=== PATIENT | male | born 1960 | race Caucasian/White ===

== ENCOUNTER 2025-01-07 08:13 | Inpatient (IN) | payer OTHER, SELFPAY ==
[2025-01-04 18:07] VITALS: BP 147/92
[2025-01-04 18:40] LABS: Hematocrit 47.9 % (39.0-52.0); Hemoglobin 15.1 g/dL (13.0-18.0); Mean Corp Hgb Conc. 31.5 g/dL (33.0-37.0); Mean Corpuscular Volume 90.4 fL (80.0-94.0); Nucleated Red Blood Cells % 0 % (-); Platelet Count 239 10^3/uL (130-400); Red Cell Dist. Width 13.3 % (11.5-14.5)
[2025-01-04 19:01] LABS: ALT (SGPT) 43 U/L (0-50); AST (SGOT) 24 U/L (17-59); Albumin 4.0 g/dl (3.5-5.0); Alkaline Phosphatase 61 U/L (38-126); Blood Urea Nitrogen 32 mg/dl (9-20); Calcium 8.9 mg/dl (8.4-10.2); Carbon Dioxide 22 mmol/L (22-30); Chloride 109 mmol/L (98-107); Glucose 106 mg/dl (70-99); Lipase 217 U/L (23-300); Potassium 4.6 mmol/L (3.5-5.1); Sodium 139 mmol/L (135-145); Total Protein 7.2 g/dl (6.3-8.2); eGFR 27.99
[2025-01-04 19:15] LABS: Urine Character Clear (Clear)
[2025-01-04 20:30] LABS: Urine Red Blood Cell 0-2 /HPF (0-2); Urine Squamous Cell >30 /LPF (Few)
--- NOTE | 2025-01-04 20:33 | ED.GENMED ---
History of Present Illness
General
Chief Complaint: Flank Pain
Source: patient
Exam Limitations: none
Time Seen by Provider: 01/04/25 20:00
Nursing documentation reviewed up to this point in time: agreed with
History of Present Illness
History of Present Illness:
64-year-old male with a past medical history of hypertension, hyperlipidemia, 'heart attack' who presents to the emergency department with his daughter for evaluation of multiple complaints. Patient is from [facility] and recently arrived here to
stay with his family. His daughter is at bedside and helps with collateral history. His primary reason it sounds like for presented to the ER tonight is that he is having chest pain which he describes as a vague heaviness in the left side of his
chest that has been off and on for the past few days. This is associated with a persistent cough and intermittent chills. Cough has been ongoing for about a month. Patient says that he was apparently hospitalized for 10 days in [facility] and was
released last week before coming [place] the [place]. He says he was hospitalized for 'heart attack' but says that he did not have any stents or procedures done in his heart and was treated only with medications. He feels symptoms the past few days similar.
In addition to his chest pains patient also has been having left-sided flank pain and this has been ongoing for a few weeks waxing and waning intensity and he describes it as 'a kidney pain.' Radiates towards the left lower abdomen. No clear
triggering or relieving factors. He has had some increased urinary frequency. No dysuria or hematuria noted. He does have a history of kidney stones apparently. He has not had any nausea, vomiting or change in stools.
Review of Systems
Review of Systems
All Other Systems: ROS reviewed and negative except as documented in HPI and ROS
Constitutional: Reports fever, fatigue and chills
EENT: Reports runny nose; Denies sore throat
Respiratory: Reports cough and trouble breathing
Cardiac: Reports chest pain
ABD/GI: Denies abdominal pain, nausea, vomiting or diarrhea
: Reports frequency and flank pain; Denies dysuria or bleeding
Musculoskeletal: Reports back pain
Neurological: Denies dizzy or headache
Phy Exam
Physical Exam
Physical Exam:
General: Awake, alert, oriented x3; no acute distress
Head: Normocephalic, atraumatic
Eyes: Conjunctiva normal, sclera anicteric
Throat: Airway intact, handling secretions
Neck: Trachea midline, supple without meningismus
Lungs: Clear to auscultation bilaterally, no wheezing, rales, rhonchi
Heart: Regular rate and rhythm, no murmurs, gallops, or rubs
Abd: Soft, non distended, nontender
Back: No CVA tenderness
Neuro: Grossly intact
Skin: No rash noted
Extremities: Trace edema around the ankles, no calf tenderness, equal pulses in all extremities
Scores
Heart Failure Risk
Heart Failure Risk Score: Not Applicable
Heart Score for Chest Pain Patients
STEMI patient?: No
History: Slightly or Non-Suspicious
ECG: Normal
Age: >45 - <65 years
Risk Factors: >/= 3 Risk Factors or History of CAD
Troponin: </= Normal Limit
Heart Score for Chest Pain Patients: 3
Heart Score Risk: 2.5% MACE over next 6 weeks
Withdrawal Assessment of Alcohol
Withdrawal Assessment Completed?: Not applicable
Course
Orders/Labs/Results
Orders:
Orders
01/04/25 18:16
Urinalysis Reflex To Culture Urgent
Date Specimen was Collected: 01/04/25
Time Specimen was Collected: 18:12
Urine Microscopic Reflex Cult Urgent
01/04/25 18:20
Complete Blood Count/With Diff Urgent
Comprehensive Metabolic Panel Urgent
Lipase Urgent
01/04/25 20:03
CT Abd/pel Without Iv Or Oral Urgent
Comment:
Reason For Exam: left flank pain
0.9% Sodium Chloride 1000 ml [Nss] 1,000 ml IV BOLUS
01/04/25 20:32
Electrocardiogram (*1) Urgent
Reason for Study: Chest Pain
EKG- Treatment ONCE
CR Chest - 2 Views Urgent
Comment:
Reason For Exam: chest pain
01/04/25 20:43
Add On- LAB Urgent
Tests Added?: lipase
01/04/25 20:44
COVID-19 Antigen Urgent
Source: Nasal Swab
NT-proBNP Urgent
Troponin I Urgent
Influenza A+B Rapid Molecular Urgent
ALPHONSO Source: Nasal Swab
Specimen Description:
01/04/25 22:15
EKG [Electrocardiogram (*1)] Urgent
Reason for Study: Chest Pain
EKG- Treatment ONCE
01/04/25 22:26
Morphine Sulfate 4 mg IV NOW STA
01/04/25 22:36
D-Dimer Urgent
01/04/25 23:01
CT Chest PE Study Urgent
Comment:
Reason For Exam: sob, CP, +dimer
0.9% Sodium Chloride 500 ml [Nss] 500 ml IV BOLUS
01/04/25 23:51
Troponin I Urgent
Abnormal Lab Results
01/04/25 01/04/25 01/04/25
18:16 18:20 22:36
MCHC 31.5 L g/dL
(33.0-37.0)
Abs Immat Gran (auto) 0.1 H 10^3/uL
(0-0.05)
Absolute Monos (auto) 1.0 H 10^3/uL
(0.1-0.6)
Immature Gran % 1.5 H %
(0-0.5)
Monocytes % 11.0 H %
(1.7-9.3)
D-Dimer 0.79 H ug/mlFEU
(0.00-0.50)
Chloride 109 H mmol/L
(98-107)
BUN 32 H mg/dl
(9-20)
Creatinine 2.5 H mg/dL
(0.7-1.3)
Glucose 106 H mg/dl
(70-99)
Ur Occult Blood Reflex 1+ A
(Negative)
Urine Bacteria (Reflex) Few A
(Negative)
Urine Albumin (Reflex) 3+ A
(Neg - Trace)
01/04/25 18:20
01/04/25 18:20
Vital Signs
Initial and Last Documented VS:
Initial Vital Signs
Temp Pulse Resp BP Pulse Ox
36.8 C 78 16 147/92 98
01/04/25 18:07 01/04/25 18:07 01/04/25 18:07 01/04/25 18:07 01/04/25 18:07
Last Documented Vital Signs
Temp Pulse Resp BP Pulse Ox
36.8 C 71 23 162/96 97
01/04/25 18:07 01/05/25 00:15 01/05/25 00:15 01/04/25 23:00 01/05/25 00:15
MDM/Problems Addressed
Differential Diagnosis Includes:
Chest pain: ACS/angina, pneumonia, pneumothorax, costochondritis, GERD, PE somewhat less likely clinically
Flank pain: Muscle pain, nephrolithiasis, UTI, diverticulitis less likely without abdominal pain or tenderness, PE less likely with normal vital signs and intermittent symptoms
MDM/Problems Addressed:
64-year-old male presents with his daughter for evaluation of multiple complaints�has had some left-sided chest pain associated with persistent cough and chills, rhinorrhea. Also having some left flank pain waxing waning intensity similar to prior
kidney stones. His vitals and exam are as above. He had lab work sent in triage including a CBC which showed no clinically significant abnormalities; CMP showed creatinine of 2.5�no baseline for comparison but patient apparently has a history of
some chronic kidney disease. His urinalysis was positive for blood but no infection. CT abdomen/pelvis for kidney stone is pending. Added chest x-ray. Will check EKG and troponin. At this point clinical suspicion for PE is low although always a
consideration especially in light of recent travel�hold off on further workup at this point.
His initial troponin is undetectable. Chest x-ray shows no acute disease. CT shows no acute abnormality to account for symptoms although multiple incidental findings requiring nonemergent follow-up. Patient remains symptomatic�although clinical
suspicion for PE is lower we will check a D-dimer given his recent travel. Repeat troponin. Treat symptomatically.
D-dimer is positive. Patient remains symptomatic with chest pain and flank pain on reassessment. I think given his recent flight with persistent symptoms of pain and a positive D-dimer he does need a CT angiogram to rule out a pulmonary embolism.
He elevated creatinine noted will plan to hydrate with IV contrast administration. In my judgment the risk of missed diagnosis outweighs risk of contrast nephropathy at this point.
CT chest shows no PE but does show CAD. There is some stenosis of the subclavian artery and likely chronic proximal vertebral artery occlusion. No acute abnormalities noted. Patient is feeling better after some morphine here. Unclear etiology to
his chest pain and he clearly has cardiac risk factors and claims that he had 'heart attack' recently�it sounds like this was likely an NSTEMI. I had a long discussion with the patient and his daughter�clearly he should be seen by cardiology with
his history and now worsening chest pains. Daughter is concerned because he is new to the area and is not well-established with any doctors and currently lives by himself here. He does not speak Qatari well. With these logistical concerns in
mind I do think that the best thing would be to observe him overnight in the hospital and have cardiology see him here. Discussed case with hospitalist for admission.
Chronic conditions affecting care:
Hypertension, hyperlipidemia, reported history of CA
*Radiology
Radiology exam reviewed: preliminary read by ED provider and radiology read reviewed
*Pulse Oximetry
SaO2: 98
Oxygen Mode of Delivery: Room air
Patient hypoxic: no (98%)
*EKG
Interpreted by ED Provider?: Yes
Heart Rate: 74
Rate: normal
Rhythm: sinus
[place]: normal axis
Interval: normal interval
QRS Pattern: normal QRS
Ischemia: other (inferior infarct, age-indeterminate )
*Critical Care Note
Total Time (30-74mins, 75-104mins- exclusive of procedures): Not Applicable
Data Reviewed
Source: patient and family
Patient Management
Social determinants of health affecting care: Living situation (Lives alone, new to the area) and Poor outpatient follow-up
Discussion with other providers: Hospitalist (Discussed with hospitalist)
Escalation/DeEscalation of care consider admission/obs:
Admission indicated
ED Attending Note
-
Portions of this chart may have been created with voice recognition software.� Occasional wrong word or��sound alike� substitutions may have occurred due to the inherent limitations of voice recognition software.
Discharge Plan
Departure
Patient Disposition: Admit
Date of Disposition: 01/05/25
Time of Disposition: 00:25
Admit to doctor: Hans
Presentation/result/management discussed w/ accepting MD/DO: Hospitalist
Discharge Problem:
Chest pain, Flank pain
Referrals:
Misael Geronimo MD [Family Provider, Internal Medicine]
Interventions
Interventions:
*Risk Screen - Suicide Last Done: 01/04/25 21:58
*General Assessment Last Done: 01/04/25 21:58
*Neglect/Abuse Screening Last Done: 01/04/25 21:58
*ED- Fall Risk Assessment Last Done: 01/04/25 22:42
*ED COVID-19 Vaccine History Last Done: 01/04/25 22:42
*ED Influenza Vaccine History Last Done: 01/04/25 22:42
AL-Fgmszh-Yuouddvvms Assessment Last Done: 01/04/25 22:00
ED-Male Genitourinary Assessment Last Done: 01/04/25 22:00
Discharge Date and Time
Print Language: IRISH
[2025-01-04] MEDS: NSS 1000 IV (20:44)
[2025-01-04 21:11] LABS: COVID-19 Antigen Negative (Negative)
[2025-01-04 21:21] LABS: Troponin I < 0.012 ng/ml
[2025-01-04 22:00] VITALS: BP 158/91
[2025-01-04] MEDS: MORPHINE SULFATE 4 MG IV (22:30)
[2025-01-04 22:35] VITALS: BMI 38.4
[2025-01-04 22:56] LABS: D-Dimer 0.79 ug/mlFEU (0.00-0.50)
[2025-01-04 23:00] VITALS: BP 162/96
[2025-01-04] MEDS: NSS 500 IV (23:11)
[2025-01-05] VITALS (9 sets, daily range): BP systolic 143–173; BP diastolic 72–99; BMI 36.1
[2025-01-05 00:31] LABS: Troponin I < 0.012 ng/ml
--- NOTE | 2025-01-05 01:36 | HPS.HSE ---
Family Physician
-
Family Physician: Misael Geronimo
Chief Complaint
-
Chest pain
History of Present Illness
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
Patient reports acute onset of chest pain radiating to his left arm lasting for about 30 minutes and associated with some diaphoresis but no nausea or vomiting. He says there was also some shortness of breath. He feels better after initial
treatment in the emergency department. His pain is now 0. He denies any palpitations lightheadedness or dizziness.
Patient is visiting from his [place] and he has been in [place] since late November. He stated a few months ago while he inspect his stent he had chest pain and was hospitalized with recommendations for stent placement. He refused stent
placement at that time. He said he was started on medications for his heart. I advised that he left his medications and lives with his son and has been off medications except losartan since arrival in [place]. He is a smoker. He denies
significant alcohol use. He denies any past medical history. He is unable to tell me why he has known CKD but creatinine was elevated in the emergency department. He reports that he has had a history of kidney 'sand'.
In the ED he was afebrile, BP of 156/73 with a pulse rate of 75 and was satting 98% on room air. ECG shows normal sinus rhythm at rate of 74 and Q waves in leads III and aVF. COVID test was negative. Troponin was negative x 2. Full lipase LFTs
were all normal. Electrolytes were normal. Creatinine was 2.5. CBC was unremarkable. Chest x-ray shows no acute infiltrate. He had a CT PE study which was negative for PE. He did showed some stenosis of the left subclavian artery.
A CT of the abdomen pelvis was performed showing indeterminate 2.0 cm left renal lesion, probably benign. Recommend follow-up renal ultrasound or MRI in 6 months. Fusiform aneurysmal dilatation of the infrarenal abdominal aorta measuring up to 3.8
cm. Questionable pancreatic cystic lesion. Recommend outpatient workup with dedicated MRI/MRCP abdomen without and with gadolinium contrast.
Medical History
Past Medical History
Past Medical History: Reports CAD and HTN
Past Surgical History: Reports Orthopedic (Back surgery)
Social History
Tobacco: Smoker (1/2 pack/day)
Alcohol: Occasional
Drug: None
Personal:
Family History
Family History: Not pertinent
Allergies / Home Medications
Allergies reflects when Allergies were last updated in [employer].
Home Medications with original date entered in [employer]
Allergy/Medication List:
Allergies
Allergy/AdvReac Type Severity Reaction Status Date / Time
No Known Allergies Allergy Verified 01/04/25 18:11
Home Medications
losartan PO DAILY 01/05/25
Review of Systems
-
Constitutional: Reports No Symptoms
EENT: Reports No Symptoms
Respiratory: Reports No Symptoms
Cardiac: Reports Chest Pain
Abdomen/GI: Reports No Symptoms
: Reports No Symptoms
Musculoskeletal: Reports No Symptoms
Skin: Reports No Symptoms
Neurological: Reports No Symptoms
Endocrine: Reports No Symptoms
Hematologic/Lymphatic: Reports No Symptoms
Psych: Reports No Symptoms
Physical Exam
Vital Signs
Vital Signs
Temp Pulse Resp BP Pulse Ox
98.3 F 72 22 156/73 95
01/04/25 18:07 01/05/25 01:15 01/05/25 01:15 01/05/25 01:00 01/05/25 00:45
Physical Exam
General: Well Developed, Well Nourished and No Apparent Distress
HEENT: NormoCephalic, Moist mucous membranes and Atraumatic
Respiratory: Clear
Cardiac: S1/S2 and Regular Rhythm; No Murmur or Rub
GI: Soft, Non Tender, Non Distended and Normal Bowel Sounds; No Organomegaly
Rectal: Deferred by Provider
Musculoskeletal: No Clubbing, No Cyanosis and No Edema
Skin: No Rash
Neuro: Nonfocal/grossly intact
Laboratory Results
-
01/04/25 18:20
01/04/25 18:20
Laboratory Results
Total Bilirubin 0.4 mg/dl (0.2-1.3) 01/04/25 18:20
AST 24 U/L (17-59) 01/04/25 18:20
ALT 43 U/L (0-50) 01/04/25 18:20
Alkaline Phosphatase 61 U/L (38-126) 01/04/25 18:20
Troponin I < 0.012 ng/ml 01/04/25 23:51
Lipase 217 U/L (23-300) 01/04/25 18:20
Data Reviewed
-
CT Scan: Report Reviewed by me
Medical Tests (Nuc Med, Echo, EKG etc): Image Personally Visualized and interpreted
Lab Data: Labs Reviewed by me
Impression/Plan
-
IMPRESSION:
64-year-old male from his [place], active smoker), hypertension, possible history of CAD on aspirin recommended a stent previously in his biggest and comes in with episode of left-sided chest pain radiating to the left arm, lasted for about 20
minutes and now resolved. ECG, troponin, CT PE negative. Due to his recent evaluation for possible stent and likely NSTEMI while he was in [facility] patient is at high risk for coronary syndrome and will be admitted for monitoring and cardiology
evaluation.
PLAN:
Chest pain -home possible ACS,
-Admit to telemetry observation
-Nitroglycerin as needed chest pain
-Aspirin 81 mg daily for now
-Lipid panel in a.m., if elevated start statin
-Continue losartan
-Echo in a.m.
- Consider stress test but can be done as an outpatient
- Cardiology consulted
- Further GDMT per cardiology
Creatinine elevation to 2.5 -suspect CKD. No prior records with patient on losartan. CT scan shows no acute renal processes. Indeterminate 2.0 cm left renal lesion, probably benign. Recommend follow-up renal ultrasound or MRI in 6 months.
- IV fluid s/p contrast
- avoid nephrotoxins
- continue losartan for now
- repeat creatinine in am
- outpatient u/s
AAA - 3.8 cm infrarenal aaa, asymptomatic
- bp control, consider metoprolol
- aspirin/statin
- smoking cessation
- follow up as outpatient
Questionable pancreatic cystic lesion.
- Recommend outpatient workup with dedicated MRI/MRCP abdomen without and with gadolinium contrast.
DVT PPX - SCD for now
Code status - full code
--- NOTE | 2025-01-05 03:41 | PTCARENOTE ---
Patient received from emergency room as admission to unit. Able to ambulate from transport stretcher to bed under own power without assistance. Pateient is only cymro speaking, daughter at bedside for assistance with Intake assessment, vital signs
documented per protocol. No acute distress is noted Telemetry pack 19 placed on patient as ordered. Hydration provided prior to departing room.
[2025-01-05 07:56] LABS: HDL Cholesterol 23 mg/dl; LDL Cholesterol, Calculated 135 mg/dl; Very Low Density Lipoprotein 36 mg/dl (0-30)
[2025-01-05 08:04] LABS: Troponin I < 0.012 ng/ml
--- NOTE | 2025-01-05 09:24 | W.PN.HOSP.TC ---
Today's Communication/Plan
-
see PN
Assessment / Plan
Assessment / Plan
64yo M with PMHX of HTN, chest pain, current smoker Hx of cardiac cath 2 mo ago in [facility] and declined stent placement at that time, [place] country [place] 19 brought with substernal chest pain similar to prior radiating to L arm, lasted
for 15min
A/P:
#Chest pain, stable angina
HLD
troponin WNL
no signs of ACS on EKG
Telemetry
Echo
Cardio consult
ASA, statin
#AAA 3.8cm
follow up in 12mo with PCP for US
#Elevated d-dimer
CT chest w/o PE
US LE for completeness
#paraseptal emphysema
#nicotine dependency
counselled on smoking cessation
#Fatty liver disease
#2cm L renal lesion
#Questionable pancreatic cyst
recommended MRI/MRCP as outpatient, but patient recently arrived to the country, questionable abilty to follow as outpatient. Contrast administration can be limited by renal function
#Essential HTN
stop losartan with elevated Cr
BB eventually, amlodipine
DVT ppx hep
FUll code
I have spent at least 58min reviewing chart, test results, communication with consultants, discussed in details with daughter over the phone and providing direct patient care
Anticipated Discharge: 24 - 48 hours
Subjective/Interval History
-
Date of Service: January 05, 2025
Objective Data
-
Labs:
Laboratory Results
01/05/25
09:19
Sodium Pending
Potassium Pending
Chloride Pending
Carbon Dioxide Pending
BUN Pending
Creatinine Pending
Glucose Pending
Calcium Pending
Vital Signs:
Vital Signs
Temp Pulse Resp BP Pulse Ox
98.6 F 62 16 167/94 94
01/05/25 07:42 01/05/25 07:42 01/05/25 07:42 01/05/25 07:42 01/05/25 07:42
I&O
01/04/25 01/05/25 01/06/25
06:59 06:59 06:59
Intake Total 960 / 960
Balance 960 / 960
Review of Systems
-
History Source: Patient
All other systems: Reviewed and negative
Physical Exam
-
General: No Apparent Distress
HEENT: Normocephalic
Respiratory: Clear to Auscultation
Cardiac: Regular Rhythm
GI: Soft, Nontender and Nondistended
Genito-urinary: No Costovertebral Tender (L)
Musculoskeletal: No Clubbing, No Cyanosis and No Edema
Neuro: Awake, Alert, Oriented and AO x 3
Psych: Calm
[2025-01-05] MEDS: NORVASC 5 MG PO (09:36)
[2025-01-05] MEDS: LOW STRENGTH ASPIRIN 81 MG PO (09:36)
[2025-01-05 09:42] LABS: Glycohemoglobin (HgbA1c) 6.6 % (4.0-5.6)
--- NOTE | 2025-01-05 09:51 | CON.CAR ---
Addendum entered and electronically signed by Nneka Mcclendon MD 01/05/25 12:17:
I saw and examined the patient.
The Channel Man's note was reviewed and I agree with the note.
Comment: [place] assistant finance director was used via the language line to obtain history and completed physical exam and discussed plan with the patient. Briefly patient is a South Korean speaking 64-year-old gentleman, morbidly obese who is a resident of [place]
who moved to live with his daughter about a month or so ago. I did try to reach the daughter, Iwona but ended up leaving a message on her voicemail since I could not reach her. Patient tells me that he has been having ongoing at times sharp
left-sided chest discomfort with numbness radiating into bilateral arms associated with shortness of breath over the last few months occurring both with exertion and at rest. Recently it has also been waking him up from being asleep. He underwent
a cardiac evaluation in his [place] in October which we unfortunately do not have any records of and was recommended stenting. The patient however patient refused saying he felt like it was 'too early.' They did warn him that his symptoms may
worsen over time. He tells me he was started on medications however the only medication by our records that he has been taking as an outpatient is losartan. He thankfully is not having any chest pain currently. We asked him if he knew if he is a
diabetic given his A1c of 6.6-year and he told us that he did not know this. We also question him in regards to his kidney function however patient tells me that he was not aware of any kidney dysfunction. His daughter relayed to her physician
enrichment assistant that they knew of some kidney dysfunction but was told that it was due to a kidney stone. We do not have a baseline creatinine. Troponins so far have been negative. LDL is 135. He has known history of hypertension, hyperlipidemia and
ongoing tobacco abuse. He has been a smoker for 40 years, smoking 5 to 6 cigarettes daily he tells me. He is now retired and used to work as a director of a factory.
Vital signs and lab work reviewed. On exam patient is morbidly obese, in no acute distress, awake, alert and oriented x 3, regular rate, normal S1 and S2, no murmurs, rubs or gallops, abdomen is obese, soft, nontender, nondistended with active
bowel sounds, warm extremities without significant edema. No JVD on exam, normal carotid upstrokes, no carotid bruit, lungs are clear to auscultation bilaterally.
EKGs reviewed by myself does not show any acute ischemic changes. They revealed normal sinus rhythm. Echocardiogram reviewed by myself showed normal biventricular function without significant valvular abnormalities, LVEF was 57%.
CTA chest per PE protocol showed no evidence of pulmonary embolus. Possible greater than 50% stenosis in the left subclavian artery. Coronary calcification was noted.
Recommendations:
1. Initiate daily baby aspirin, high intensity statin along with amlodipine for now. Hold losartan in the setting of CKD with unclear baseline.
2. Trend creatinine and electrolytes especially with CTA chest yesterday with contrast load.
3. Given his history is concerning for unstable angina, we did discuss proceeding with a heart catheterization pending what his kidney function does overnight with tentative plan for heart catheterization tomorrow versus in the near future. We
discussed the risk and benefits as well as alternatives in significant detail. I have left a message for his daughter to reach back to us over no one to call her and discussed all of the above.
4. Continue monitoring on telemetry for now. He knows to let us know in case he has any recurrent chest pains.
5. Strongly emphasized importance of complete smoking cessation.
6. Aggressive management of secondary cardiovascular risk factors. Defer management of type 2 diabetes mellitus to primary team.
7. Eventual referral for outpatient cardiac rehab.
Nneka Mcclendon MD, FACC, [facility]
Nneka Mcclendon MD, FACC, [facility]
Original Note:
Consultation
Consultation Request
Date/Time Consultation Performed: 01/05/25
Requesting Provider: Dr. Maxwell
Performing Provider: Surekha More PA-C for Dr. Mcclendon
Reason for Consultation: CP
Medical History
-
Chief Complaint: CP, SOB
History of Present Illness:
Patient is a 64-year-old male [place] Korean only speaking resident of [facility], who moved to live with his daughter in the area last month. History obtained from daughter via telephone, and through hospitalist who acts as customer care assistant. Patient reports
he has chest discomfort and shortness of breath happening randomly throughout the day, waking him from sleep as well as while he is awake. He had cardiac evaluation in [facility] in October which involved a cardiac catheterization which reportedly
showed a blockage for which they recommended stenting, but the patient refused. They told him that his symptoms would continue to worsen over time. He was prescribed a 'heavy painkiller'. Daughter reports when he gets the pain, he cannot move.
Reports it is left-sided in his chest, and radiates down his left arm. He also has some numbness in his left hand. He is only on losartan as an outpatient. His kidney function upon arrival was 2.5. Patient's daughter reports he did see a kidney
doctor in his home country, and reportedly has history of a stone, but she was unable to tell me his baseline creatinine. Troponins negative. Cardiology consulted for evaluation
PMH:
CAD
Hypertension
CKD
History of kidney stone
Ongoing tobacco use
Past Medical History
Past Medical History: Other (in HPI)
Social History
Tobacco: Smoker
Living: Alone
Allergies / Home Medications
Allergy/AdvReac Type Severity Reaction Status Date / Time
No Known Allergies Allergy Verified 01/04/25 18:11
�Medication �Instructions �Recorded �Confirmed �Type
losartan PO DAILY 01/05/25 History
Review of Systems
-
Unable to obtain full review of systems at this time due to: Language Barrier
History Source: Family
All other systems: Negative unless noted
Physical Exam
Vital Signs
Temp Pulse Resp BP Pulse Ox
98.6 F 62 16 167/94 94
01/05/25 07:42 01/05/25 09:36 01/05/25 07:42 01/05/25 09:36 01/05/25 07:42
Lab Results
01/04/25 18:20
01/05/25 09:19
Troponin I < 0.012 ng/ml 01/05/25 07:17
Uvx-O-Idawnujhcgd Pept 116 pg/ml 01/04/25 20:44
Physical Exam
General: Well Nourished, No Apparent Distress and Comfortable
HEENT: Normocephalic, Anicteric and Moist Mucous Membranes
Respiratory: Clear and Non Labored Respirations
Cardiac: S1/S2 and Regular Rhythm
GI: Soft, Non Tender, Non Distended and Normal Bowel Sounds
Musculoskeletal: No Clubbing, No Cyanosis and No Edema
Skin: Warm and Dry
Neuro: AO x 3
Impression / Plan
-
Primary Digital Associate Media Director: none in [place]
Assessment:
Presentation with CP
Serially negative troponins
CAD, reportedly previously recommended stenting in [facility] however patient refused
Hypertension
CKD
Diabetes
History of kidney stone
Ongoing tobacco use
Infrarenal abdominal aortic aneurysm, 3.8 cm
Possible pancreatic lesion
50% prox L subclavian stenosis noted by imaging
ECHO 01/05/25: pending
Plan:
-Patient presents with CP. reportedly had cath 10/2024 in [facility] and was recommended stenting, however patient refused per daughter. further details unknown at this time
-chest CT negative for PE. CXR with possible mild diffuse interstitial prominence (pulm edema vs pneumonitis). proBNP 116
-EKG SR with evidence of prior inferior infarct
-add asa 81mg daily
-LDL 135. increased lipitor dose to 40mg QPM. goal <70 given diabetes
-hold OP losartan given Cr of 2.5. follow Cr trend, if remains significantly elevated tomorrow, consider nephro eval
-norvasc added for HTN, antianginal. relatively bradycardic so holding off on BB for now
-echo pending
-discussed risk of contrast induced nephropathy with cardiac cath with daughter given his CKD. timing to be determined, NPO after midnight
-also diabetic with hgbA1c 6.6%. treatment per primary service
-d/w nursing. d/w hospitalist. d/w daughter Iwona via telephone
Data Reviewed
-
EKG: Tracing Personally Visualized and interpreted
Radiology: Report Reviewed by me
CT Scan: Report Reviewed by me
Labs: Labs Reviewed by me
[2025-01-05 11:28] LABS: Blood Urea Nitrogen 29 mg/dl (9-20); Calcium 8.7 mg/dl (8.4-10.2); Carbon Dioxide 25 mmol/L (22-30); Chloride 109 mmol/L (98-107); Estimated Creatinine Clearance 44 ml/min; Glucose 105 mg/dl (70-99); Potassium 4.6 mmol/L (3.5-5.1); Sodium 140 mmol/L (135-145); eGFR 36.58
--- NOTE | 2025-01-05 11:32 | CM ---
Patient seen at bedside with daughter also present in [facility]. Patient stated that he only spoke [place] Zeal[place]. Patient daughter translated. Patient lives alone in a 2 story condo but daughter is providing her address and living arrangements. Patient
daughter requested [employer] to assist in application for insurance and is starting application for when appropriate. CM will update [employer] and request assessment. Patient will be going to Dr. Ayala and he will be using the [facility] in [place]. CM will
continue to follow for discharge planning needs.
Plan; home with continue to follow for discharge planning needs; [employer]; watch for VN needs.
[2025-01-05 13:00] LABS: Glucose - Point of Care 130 mg/dl (70-99)
[2025-01-05] MEDS: NSS 1000 IV (13:57)
[2025-01-05] MEDS: HEPARIN 5000 UNITS SC ×2 (16:05→23:36)
[2025-01-05 16:34] LABS: Glucose - Point of Care 146 mg/dl (70-99)
[2025-01-05] MEDS: LIPITOR 40 MG PO (17:08)
[2025-01-05 21:26] LABS: Glucose - Point of Care 153 mg/dl (70-99)
[2025-01-06] VITALS (15 sets, daily range): BP systolic 147–176; BP diastolic 84–108; BMI 35.8
[2025-01-06] MEDS: NSS 1000 IV ×3 (02:41→21:15)
--- NOTE | 2025-01-06 04:00 | PTCARENOTE ---
Patient blood pressure reported high during standard assessment with automatic equipment. Manual assessment performed and blood pressure found to be at established baseline. Remains high in the 160's / 80's. Norvasc expected to be started this
morning. House provider Robert informed of assessments.
[2025-01-06 07:51] LABS: Glucose - Point of Care 112 mg/dl (70-99)
[2025-01-06 08:34] LABS: Blood Urea Nitrogen 27 mg/dl (9-20); Calcium 9.0 mg/dl (8.4-10.2); Carbon Dioxide 24 mmol/L (22-30); Chloride 111 mmol/L (98-107); Estimated Creatinine Clearance 47 ml/min; Glucose 116 mg/dl (70-99); Potassium 4.9 mmol/L (3.5-5.1); Sodium 141 mmol/L (135-145); eGFR 38.91
[2025-01-06] MEDS: HEPARIN 5000 UNITS SC ×3 (08:41→23:06)
[2025-01-06] MEDS: NORVASC 5 MG PO (08:41)
[2025-01-06] MEDS: LOW STRENGTH ASPIRIN 81 MG PO (08:42)
--- NOTE | 2025-01-06 11:38 | W.PN.CARDCBS ---
Today's Communication / Plan
-
Plan:
1. Patient presented with ongoing episodes of chest discomfort at rest and with exertion concerning for possible acute coronary syndrome and unstable angina. He was recommended workup and was back in [place] given his multiple cardiovascular risk
factors and presentation however patient got nervous about pursuing a heart catheterization and therefore did not pursue this. This was clarified using a language line today when previously we were told that he underwent a heart catheterization in
October and it was [place] and was recommended stenting however today they tell us that he never underwent any procedures given he got scared.
2. Chest CTA negative for PE. Chest x-ray with possible mild diffuse interstitial prominence due to pulmonary edema or pneumonitis. proBNP is 116.
3. ECG with no signs of acute ischemia.
4. Started on daily baby aspirin along with high intensity statin with LDL of 135 and goal being at least less than 70 given diabetes.
5. Defer management of newly diagnosed diabetes to primary team.
6. Ongoing aggressive management of cardiovascular risk factors.
7. Had lengthy discussions with patient and daughters given concern for possible ACS with multiple cardiovascular risk factors and ongoing smoking especially with newly diagnosed diabetes discussing role for coronary angiogram to rule out
obstructive CAD and after discussing the risk and benefits in significant detail they are agreeable. Specifically discussed risk for contrast-induced nephropathy given baseline CKD.
8. Further recommendations based on findings of the heart catheterization
Extensively also discussed need for medications in case patient needs PCI and patient is agreeable
Nneka Mcclendon MD, [facility], [facility]
Total time spent: 36mins
Impression / Plan
-
Primary Associate Civil Engineer: none in [place]
Assessment:
Presentation with CP
Serially negative troponins
CAD, reportedly previously recommended stenting in [facility] however patient refused
Hypertension
CKD
Diabetes
History of kidney stone
Ongoing tobacco use
Infrarenal abdominal aortic aneurysm, 3.8 cm
Possible pancreatic lesion
50% prox L subclavian stenosis noted by imaging
ECHO 01/05/25: pending
Plan:
1. Patient presented with ongoing episodes of chest discomfort at rest and with exertion concerning for possible acute coronary syndrome and unstable angina. He was recommended workup and was back in [place] given his multiple cardiovascular risk
factors and presentation however patient got nervous about pursuing a heart catheterization and therefore did not pursue this. This was clarified using a language line today when previously we were told that he underwent a heart catheterization in
October and it was [place] and was recommended stenting however today they tell us that he never underwent any procedures given he got scared.
2. Chest CTA negative for PE. Chest x-ray with possible mild diffuse interstitial prominence due to pulmonary edema or pneumonitis. proBNP is 116.
3. ECG with no signs of acute ischemia.
4. Started on daily baby aspirin along with high intensity statin with LDL of 135 and goal being at least less than 70 given diabetes.
5. Defer management of newly diagnosed diabetes to primary team.
6. Ongoing aggressive management of cardiovascular risk factors.
7. Had lengthy discussions with patient and daughters given concern for possible ACS with multiple cardiovascular risk factors and ongoing smoking especially with newly diagnosed diabetes discussing role for coronary angiogram to rule out
obstructive CAD and after discussing the risk and benefits in significant detail they are agreeable. Specifically discussed risk for contrast-induced nephropathy given baseline CKD.
8. Further recommendations based on findings of the heart catheterization
Extensively also discussed need for medications in case patient needs PCI and patient is agreeable
Nneka Mcclendon MD, [facility], [facility]
Total time spent: 36mins
Progress Note - Associate Civil Engineer
Subjective
Date of Service: January 06, 2025
Overall patient did well overnight. No recurrent chest discomfort.
Objective
Labs:
01/04/25 18:20
01/06/25 07:44
Labs
Hgb 15.1 g/dL (13.0-18.0) 01/04/25 18:20
Hct 47.9 % (39.0-52.0) 01/04/25 18:20
Plt Count 239 10^3/uL (130-400) 01/04/25 18:20
Sodium 141 mmol/L (135-145) 01/06/25 07:44
Potassium 4.9 mmol/L (3.5-5.1) 01/06/25 07:44
BUN 27 mg/dl (9-20) H 01/06/25 07:44
Creatinine 1.9 mg/dL (0.7-1.3) H 01/06/25 07:44
Glucose 116 mg/dl (70-99) H 01/06/25 07:44
Troponins
01/04/25 01/04/25 01/05/25
20:44 23:51 07:17
Troponin I < 0.012 < 0.012 < 0.012
Vital Signs and I&O:
Vital Signs
Temp Pulse Resp BP Pulse Ox
97.7 F 67 16 169/94 98
01/06/25 11:12 01/06/25 11:12 01/06/25 11:12 01/06/25 11:12 01/06/25 11:12
Vital Signs
Temp Pulse Resp BP Pulse Ox
97.7 F 67 16 169/94 98
01/06/25 11:12 01/06/25 11:12 01/06/25 11:12 01/06/25 11:12 01/06/25 11:12
Intake & Output
01/04/25 01/05/25 01/06/25 01/07/25
06:59 06:59 06:59 06:59
Intake Total 960 / 960 960 / 960
Balance 960 / 960 960 / 960
Physical Exam
Physical Exam
On exam, patient is morbidly obese, no acute distress
Further history obtained via language line
JVP about 8 cm of water, lungs are clear to auscultation bilaterally, normal carotid upstrokes, no carotid bruit
Regular rate, distant heart sounds, normal S1 and S2, no murmurs, rubs or
Abdomen is obese, soft, nontender with active bowel
Warm extremities without significant edema
--- NOTE | 2025-01-06 11:38 | ITS.CL.CATH ---
Principal Technical Specialist - Catheterization
Cardiac Catheterization
Procedure Report:
LEFT HEART CATHETERIZATION AND CORONARY INTERVENTION
Date of Procedure: January 06, 2025
Referring: Nneka Mcclendon MD, [facility], [facility]
PROCEDURES:
1. Left heart catheterization, coronary angiogram.
2. Moderate sedation.
3. Successful percutaneous coronary artery intervention of a diffuse irregular up to 80% stenosis in the proximal to mid RCA with one 3.0 x 30 mm Medtronic [place] frontier drug-eluting stent, postdilated using IVUS guidance with 3.25 mm NC balloon
distally at 18 ernesto and 4.0 mm NC balloon proximally at 18 ernesto with an excellent angiographic result.
4. Successful percutaneous coronary artery intervention of focal 80% distal LAD stenosis with one 2.25 x 12 mm Medtronic Lele frontier drug-eluting stent, postdilated using IVUS guidance with a 2.5 mm NC balloon at 24 ernesto with an excellent
angiographic and IVUS based result.
5. Intravascular ultrasound of RCA.
6. Intravascular ultrasound of LAD.
INDICATION: Concern for unstable angina in the setting of multiple cardiovascular risk factors and ongoing episodes of chest
ACCESS: Right radial artery, 6Fr. sheath, under US guidance.
HEMODYNAMICS : (mmHg)
AO (s/d) : 151/93
LVEDP : 13
No significant gradient across the aortic valve to suggest aortic stenosis.
CORONARY FINDINGS
Dominance: Right
Left Main Trunk (LMT): Large caliber vessel that gives rise to the LAD and LCx branches and is free of angiographic disease.
Left Anterior Descending Artery (LAD): Large caliber vessel that gives off 3 major diagonal branches as it courses along the anterior inter-ventricular groove before wrapping around the cardiac apex. Distal LAD has a eccentric 80% stenosis which
was intervened upon as noted below. Mid LAD has 30 to 40% stenosis just distal to D2 takeoff. D1 is a large-caliber vessel with mild diffuse atherosclerotic plaque. Both D2 and the 3 are small in caliber with 40 to 50% stenosis in ostial D3.
Left Circumflex Artery (LCx): Large caliber vessel that gives off 1 major obtuse marginal (OM) branch as it courses along the atrio-ventricular (AV) groove. In the midportion of OM there is diffuse 70 to 75% stenosis
Right Coronary Artery (RCA): Large caliber dominant vessel that gives rise to the posterior descending artery (RPDA) and postero-lateral ventricular (RPLV) branches distally. The mid RCA has diffuse up to 80% stenosis with irregularity and plaque
concerning for possibly recent plaque rupture and thought to be likely culprit for presenting ACS. Intervention as noted below.
CORONARY INTERVENTIONS: We decided to initially proceed with mid RCA intervention. RCA was selectively engaged using a 6 Canadian JR4 guide catheter. Additional heparin was given to maintain a therapeutic ACT throughout the case. A 190 cm 0.014
run-through wire was carefully navigated across the mid RCA stenosis into the distal vessel. The lesion was predilated using a 3.0 x 20 mm semicompliant balloon with full expansion and subsequently stented using a 3.0 x 30 mm Medtronic Lele
frontier drug-eluting stent. This was postdilated using IVUS guidance with a 3.25 mm NC balloon at 18 ernesto distally and 4.0 mm NC balloon at 18 ernesto proximally with an excellent angiographic and IVUS based result. We then decided to proceed with
distal LAD intervention. A 6 Canadian EBU 3.5 guide catheter was used to selectively engage the left coronary artery. The same 190 cm 0.014 run-through wire was carefully navigated across the distal LAD stenosis into the apical LAD. The lesion was
directly stented using a 2.25 x 12 mm Medtronic Lele frontier drug-eluting stent and postdilated using IVUS guidance with a 2.5 mm NC balloon at 24 ernesto with an excellent angiographic result. The patient tolerated the procedure well with no acute
complications. He was loaded with 600 mg of Plavix at the end of the case.
SEDATION: 67 minutes of procedural sedation was utilized. IV Midazolam and IV Fentanyl were administered. An independent program medical director was present to assist with and help manage the patient's level of consciousness and physiologic status.
RADIATION SUMMARY: Fluoro Time (min): 23.7, Dose (mGy): 1181.8, DAP (Gy.cm2) : 72.7
Closure Device: There were no immediate intra-procedural complications. The sheath was pulled in the film laboratory technician and a vascular-band applied to the right wrist for radial artery hemostasis using the patent hemostasis technique.
CONCLUSIONS
1. Successful percutaneous coronary artery intervention of a diffuse irregular up to 80% stenosis in the proximal to mid RCA with one 3.0 x 30 mm Medtronic [place] frontier drug-eluting stent, postdilated using IVUS guidance with 3.25 mm NC balloon
distally at 18 ernesto and 4.0 mm NC balloon proximally at 18 ernesto with an excellent angiographic result.
2. Successful percutaneous coronary artery intervention of focal 80% distal LAD stenosis with one 2.25 x 12 mm Medtronic Lele frontier drug-eluting stent, postdilated using IVUS guidance with a 2.5 mm NC balloon at 24 ernesto with an excellent
angiographic and IVUS based result.
3. Mid LAD has 30 to 40% stenosis just distal to D2 takeoff.
4. OM 1 has diffuse 70 to 75% stenosis in the midportion.
5. LVEDP of 13 mmHg
RECOMMENDATIONS
1. Wean radial band per protocol. Monitor right hand perfusion and for bleeding from the radial site following removal of the vascular-band following trans-radial access.
2. Continue aggressive medical therapy and risk factor modification for secondary CAD prevention.
3. Continue ASA 81 mg daily for life.
4. Continue clopidogrel for at least 12 months of uninterrupted dual anti-platelet therapy given drug-eluting stent (MARY) implantation to mitigate the risk of stent thrombosis. This is not to be stopped for any reason without the guidance of a
continuous mining machine lode miner.
5. Hydrate with normal saline to mitigate the risk of contrast-induced acute kidney injury.
6. Referral for outpatient cardiac rehab.
Nneka Mcclendon MD, FAC, [facility]
--- NOTE | 2025-01-06 11:58 | W.PN.HOSP.TC ---
Today's Communication/Plan
-
cardiac cath
nephro consult
Assessment / Plan
Assessment / Plan
64yo M with PMHX of HTN, chest pain, current smoker Hx of cardiac cath [address] [facility] and declined stent placement at that time, [place] with substernal chest pain similar to prior radiating to L arm, lasted
for 15min
A/P:
#Chest pain, stable angina
HLD
troponin WNL
no signs of ACS on EKG
Telemetry
Echo: EF 57%, no wall motion abnormalities, no significant valvular disease
Cardio consult: for cardiac cath
ASA, statin
#AAA 3.8cm
follow up in 12mo with PCP for US
#FRANCISCO on CKD unspecified stage
Improved on IVF from 2.5 to 1.9
Urine studies not done for some reason
Nephro consult
#Elevated d-dimer
CT chest w/o PE
US LE neg for DVT
#paraseptal emphysema
#nicotine dependency
counselled on smoking cessation
#New diagnosis of DM type 2
HgbA1c 6.6%
Accucheck, Insulin SS, DM diet
#Fatty liver disease
#2cm L renal lesion
#Questionable pancreatic cyst
recommended MRI/MRCP as outpatient, but patient recently arrived to the country, questionable abilty to follow as outpatient. Contrast administration can be limited by renal function
#Essential HTN
stop losartan with elevated Cr
BB eventually, amlodipine, Imdur
DVT ppx hep
FUll code
I have spent at least 51min reviewing chart, test results, communication with consultants, discussed in details with daughter over the phone and providing direct patient care
Anticipated Discharge: 24 - 48 hours
Subjective/Interval History
-
Date of Service: January 06, 2025
Objective Data
-
Labs:
Laboratory Results
01/06/25
07:44
Sodium 141
Potassium 4.9
Chloride 111 H
Carbon Dioxide 24
BUN 27 H
Creatinine 1.9 H
Glucose 116 H
Calcium 9.0
Vital Signs:
Vital Signs
Temp Pulse Resp BP Pulse Ox
97.7 F 67 16 169/94 98
01/06/25 11:12 01/06/25 11:12 01/06/25 11:12 01/06/25 11:12 01/06/25 11:12
I&O
01/05/25 01/06/25 01/07/25
06:59 06:59 06:59
Intake Total 960 / 960 960 / 960
Balance 960 / 960 960 / 960
Review of Systems
-
History Source: Patient
All other systems: Reviewed and negative
Physical Exam
-
General: No Apparent Distress
HEENT: Normocephalic
Respiratory: Clear to Auscultation
Musculoskeletal: No Clubbing, No Cyanosis and No Edema
Neuro: Awake, Alert, Oriented and AO x 3
Psych: Calm
[2025-01-06] MEDS: LOW STRENGTH ASPIRIN 243 MG PO (12:12)
--- NOTE | 2025-01-06 12:53 | CM ---
Patient unavailable - chart reviewed
cardiac cath
nephro consult
CAM[facility] Carter [facility]
PLAN: home, CM to continue to follow for dc VN needs
[2025-01-06 13:31] LABS: ACT-LR - POC 227 Seconds (116-155)
[2025-01-06 13:37] LABS: ACT-LR - POC 287 Seconds (116-155)
[2025-01-06 13:49] LABS: ACT-LR - POC 382 Seconds (116-155)
[2025-01-06 14:07] LABS: ACT-LR - POC 271 Seconds (116-155)
[2025-01-06 14:31] LABS: ACT-LR - POC 276 Seconds (116-155)
--- NOTE | 2025-01-06 15:40 | PTCARENOTE ---
Received patient from the rn lab at 1450. Patient is AAO, denies any pain, radial band in place on the right wrist with a palpable pulse and pulse ox of 97%. No bleeding or signs of hematoma. Monitoring VS, call norwood in reach. Daughter arrived
with food from home for the patient and was able to translate post cath activity restrictions. TT to Castillo Junior NP re: imdur that was ordered for noon today and that he did not receive, to hold off on imdur until tomorrow due to him receiving nitro in
the rn lab.
--- NOTE | 2025-01-06 15:44 | PTCARENOTE ---
Patient's daughter states she was left a vm from Dr. Mcclendon to notify her when she arrives. Dr. Mcclendon is aware that she is here now and will come speak with her.
--- NOTE | 2025-01-06 16:20 | W.CON.NEPH ---
Consultation
-
Date/Time Consultation Requested: 01/06/25 1204
Date/Time Consultation Performed: 01/06/25 1530
Requesting Provider: Hudson Resendiz
Performing Provider: Chrissy Boyer
Reason for Consultation: FRANCISCO
Medical History
-
Chief Complaint: chest pain
History of Present Illness:
64-year-old Malawian-speaking male with past medical history of hypertension on Losartan, current smoker, CKD< k stone and CAD who presents to the emergency department with chest pain on 01/04. CP seem stable angina and he reportedly was recommended
cardiac stent at [facility] but he declined the procedure. He arrived to [facility] on Dec 19 and cp started again hence came to the hospital. W/u in ER Noted no EKGc changes and echo normal. CT abd with out contrast shows 2cm indeterminate left
renal possible benign lesion, AAA 3.8cm, ?pancreatic lesion. CT Chest angio shows no PE. He saw cardiology and had cardiac cath today for angina, had 2 stents placed. Labs noted with elevated cr 2.5 on admit and now improving to 1.9 with no prior
baseline. He reports that he has had a history of kidney disease does not know details, supposed to nephrology but he never did. He also had k stones but none recently. He has no active CP or sob now. No abd pian. No dysuria but has hesitancy per
daughter. Nephrology asked to eval for FRANCISCO vs CKD.
Past Medical History
CAD
Hypertension
CKD
History of kidney stone
Ongoing tobacco use
Past Surgical History: Orthopedic (back surg)
Social History
Tobacco: Smoker
Alcohol: Occasional
Drug: None
Personal:
Living: With Family
Family History
daughter and son with kidney stones
Family History: Not Pertinent
Allergies / Home Medications
Allergy/AdvReac Type Severity Reaction Status Date / Time
No Known Allergies Allergy Verified 01/04/25 18:11
�Medication �Instructions �Recorded �Confirmed �Type
losartan PO DAILY Blood Pressure 01/05/25 History
Review of Systems
-
All other systems: Negative unless noted
Physical Exam
Vital Signs
Vital Signs
Temp Pulse Resp BP Pulse Ox
98.1 F 77 18 170/98 96
01/06/25 11:45 01/06/25 11:45 01/06/25 11:45 01/06/25 11:45 01/06/25 11:45
Lab Results
WBC 8.9 10^3/uL (4.8-10.8) 01/04/25 18:20
RBC 5.30 10^6/uL (4.70-6.10) 01/04/25 18:20
Hgb 15.1 g/dL (13.0-18.0) 01/04/25 18:20
Hct 47.9 % (39.0-52.0) 01/04/25 18:20
Plt Count 239 10^3/uL (130-400) 01/04/25 18:20
Sodium 141 mmol/L (135-145) 01/06/25 07:44
Potassium 4.9 mmol/L (3.5-5.1) 01/06/25 07:44
Chloride 111 mmol/L (98-107) H 01/06/25 07:44
Carbon Dioxide 24 mmol/L (22-30) 01/06/25 07:44
BUN 27 mg/dl (9-20) H 01/06/25 07:44
Creatinine 1.9 mg/dL (0.7-1.3) H 01/06/25 07:44
eGFR 38.91 01/06/25 07:44
Glucose 116 mg/dl (70-99) H 01/06/25 07:44
Calcium 9.0 mg/dl (8.4-10.2) 01/06/25 07:44
Gqc-X-Dtxrzylptep Pept 116 pg/ml 01/04/25 20:44
Albumin 4.0 g/dl (3.5-5.0) 01/04/25 18:20
Physical Exam
General: Awake, Alert, Oriented, AOx3, No Distress and Nontoxic
HEENT: EOMI, Anicteric, Conjunctivae Clear, Facial Symmetry and No JVD
Respiratory: Clear, Rhonchi and Normal Excursion
Cardiac: S1/S2 and Regular Rate/Rhythm
Breast: Deferred by me
Abdomen: Soft, Nontender and Nondistended
Musculoskeletal: No Cyanosis and No Edema
Skin: No Rash
Neuro: Nonfocal/Grossly Intact
Psych: Mood/afflect pleasant and Appropriate
Data Reviewed
-
Labs: Labs Reviewed by me, Discussed with Patient and Discussed with Family
Assessment/Plan
-
IMP:
Chest pain -home possible ACS s/p cath and 2 stents on 01/06
FRANCISCO with CKD-no baseline cr
Indeterminate 2.0 cm left renal lesion, probably benign. Recommend follow-up renal ultrasound or MRI in 6 months.
AAA - 3.8 cm infrarenal aaa
Questionable pancreatic cystic lesion
New DM 6.6A1c
paraseptal emphysema
Fatty liver disease
50% prox L subclavian stenosis noted by imaging
Active smoker
Plan:
A/w CP concerning of ACS
FRANCISCO-no previous labs to compare
cr is improving with IVF, contrast exposure on 01/04 and 01/06
UA 1+bld but no RBC, 3+alb, check U PCR , no hydro on CT
possible benign left renal lesion need f/u imaging in 6m
BP high , off ARB and started on AMlodipine, titrate as needed
s/p LHC today, he is aware of mod risk of SON, cont IVF as ordered
also with new DM A1c 6.6
needs MRI for pancreatic cyst -would wait cr to stabilize first
reviewed imp of controlling HTN, compliant with medical care and quit smoking
daughter helped in translation
--- NOTE | 2025-01-06 16:45 | CM ---
Pricing on Prasugrel 10mg from [facility] with [facility] coupon - $32.33, discussed with daughter who is agreeable to cost. Coupon placed in red discharge folder.
--- NOTE | 2025-01-06 16:50 | CM ---
Spoke to patient/daughter in room, patient speaks only Botswanan. He lives in a 2 story townhouse close to daughter, she is very supportive. Daughter confirmed speaking to [facility] and completing application with supporting documents, daughter spoke with
customer field representative that confirmed that he qualifies for MA.
[2025-01-06] MEDS: LIPITOR 40 MG PO (17:10)
[2025-01-06 17:28] LABS: Urine Character Clear (Clear)
[2025-01-06] MEDS: COREG 3.125 MG PO (17:38)
[2025-01-06 17:41] LABS: Urine Red Blood Cell 0-2 /HPF (0-2); Urine Squamous Cell 0-2 /LPF (Few); Urine White Cell 0-2 /HPF (0-5)
[2025-01-06 18:18] LABS: Body Fluid for Eosinophils No Eosinophils seen
[2025-01-06] MEDS: APRESOLINE 5 MG IV (18:30)
--- NOTE | 2025-01-06 19:33 | PTCARENOTE ---
BP remains elevated, TT to Dr. Brown. Patient given hydralazine 5mg IV as ordered, BP now 149/98.
[2025-01-06 22:03] LABS: Glucose - Point of Care 108 mg/dl (70-99)
--- NOTE | 2025-01-06 23:21 | PTCARENOTE ---
Received patient at change of shift. SR on the monitor, HR in the 80s. R radial dressing CDI. Steam Trap Worker in room used to communicate with patient. No complaints from pt at this time, call norwood within reach.
[2025-01-07 03:38] VITALS: BP 161/92
[2025-01-07 04:09] LABS: Hematocrit 44.2 % (39.0-52.0); Hemoglobin 14.7 g/dL (13.0-18.0); Mean Corp Hgb Conc. 33.3 g/dL (33.0-37.0); Mean Corpuscular Volume 87.0 fL (80.0-94.0); Nucleated Red Blood Cells % 0 % (-); Platelet Count 228 10^3/uL (130-400); Red Cell Dist. Width 13.2 % (11.5-14.5)
[2025-01-07 04:29] LABS: ALT (SGPT) 35 U/L (0-50); AST (SGOT) 21 U/L (17-59); Albumin 3.7 g/dl (3.5-5.0); Alkaline Phosphatase 65 U/L (38-126); Blood Urea Nitrogen 29 mg/dl (9-20); Calcium 8.8 mg/dl (8.4-10.2); Carbon Dioxide 19 mmol/L (22-30); Chloride 113 mmol/L (98-107); Estimated Creatinine Clearance 49 ml/min; Glucose 116 mg/dl (70-99); Potassium 4.4 mmol/L (3.5-5.1); Sodium 139 mmol/L (135-145); Total Protein 6.7 g/dl (6.3-8.2); eGFR 41.51
[2025-01-07 08:32] VITALS: BP 162/99
[2025-01-07 08:33] VITALS: BP 162/99
--- NOTE | 2025-01-07 08:37 | W.PN.CARDCBS ---
Addendum entered and electronically signed by Nneka Mcclendon MD 01/07/25 09:10:
I saw and examined the patient.
The Family Preservation Caseworker's note was reviewed and I agree with the note.
Comment: Patient did well overnight with no complaints. No chest discomfort or shortness of breath. No issues at the right radial access site.
Vital signs and lab work reviewed. Creatinine stable at 1.8. Blood pressures remain elevated.
On exam patient is well-appearing, no acute distress, awake, alert and oriented x 3, Morbidly obese, regular rate, normal S1 and S2, no murmurs, rubs or gallops, lungs are clear to auscultation bilaterally, right radial access site with dressing in
place which is clean, dry and intact without evidence of hematoma or bruit, warm extremities without significant edema.
Recommendations:
1. Patient is status post successful two-vessel PCI to the RCA and LAD as noted below. Given concern that he came in with ACS/unstable angina plan to load with prasugrel 60 mg today after cost was checked with case management. He will then
continue daily baby aspirin and Effient 10 mg upon discharge along with high intensity statin with LDL goal of less than 55.
2. Given elevated blood pressure we will continue his Norvasc and plan to increase carvedilol to 6.25 mg twice daily and hold off on Imdur for now. As an outpatient especially with new diabetes the losartan that was held this morning may need to
be reconsidered based on nephrology input given baseline CKD.
3. Follow up with the [facility] given CKD in 1 week as an outpatient. His home losartan was held this admission.
4. He will go home on as needed sublingual nitroglycerin.
5. We discussed that he should follow-up with outpatient cardiology which will be set up along with outpatient nephrology and PCP given his CKD and new diagnosis of diabetes.
6. Referral for outpatient cardiac rehab.
7. Strongly emphasized importance of complete smoking cessation.
8. Educated in regards to importance of a heart healthy Mediterranean type diet which is low in sugars and carbs given new diagnosis of diabetes and increase in physical activity with overall goal for weight loss to optimize his cardiovascular risk
moving forward.
All of the above was explained to the patient at bedside using the language line. I reached out to the daughter, Iwona however ended up leaving message on her voicemail given I could not reach her.
Discussed with nursing.
Stable for discharge from a cardiac standpoint.
Nneka Mcclendon MD, [facility], [facility]
Total time spent: 32 minutes
Original Note:
Today's Communication / Plan
-
Loading with Effient today. Continue aspirin, Effient 10 mg daily upon discharge
Continue Norvasc 10 mg daily. Coreg increased to 6.25 mg twice daily
Continue Lipitor 40 mg every afternoon
Follow creatinine. Repeat BMP in 1 week. Losartan stopped this admission
SL nitro PRN for home
Cardiac rehab
Outpatient cardiac follow-up arranged
Okay for discharge to home today
Impression / Plan
-
Primary Winter Sports Manager: none in
Assessment:
Presentation with CP
ACS
CAD, reportedly previously recommended stenting in [facility] however patient refused
s/p RCA, LAD PCI 01/06/25 with residual circ disease with plan for medical mgmt
FRANCISCO on CKD
Hypertension
Diabetes
History of kidney stone
Ongoing tobacco use
Infrarenal abdominal aortic aneurysm, 3.8 cm
Possible pancreatic lesion
50% prox L subclavian stenosis noted by imaging
ECHO 01/05/25: EF 57%, no significant valvular abnormalities, no pericardial effusion
Plan:
- He presented with chest pain and although troponins were negative, felt to be ACS.
- He underwent cardiac catheterization 01/06/2025 resulting in RCA and LAD PCI with residual circumflex disease, plan for medical management
- Right wrist site clean dry and intact
- echocardiogram with preserved EF
- Loading with Effient today and will plan for aspirin, Effient 10 mg daily upon discharge
- Blood pressures remain elevated. started norvasc 10mg daily this admission. as HRs ok on tele overnight, will plan to increase coreg dose to 6.25mg BID. he already has headache from nitro yesterday so imdur not felt to be best option
- Cr 1.8. appreciate nephrology input. stopped losartan for now, can reassess adding as OP. BMP in 1 week upon DC
- LDL 135. goal <70 given diabetes. discussed diet moving forward. continue high intensity statin
- cardiac rehab
- OP cardiac follow up arranged
- would send home with SL nitro given residual disease
- ambulate
- ok for DC to home today
- d/w nursing
- Language line used for interaction given patient Azerbaijani-speaking
Progress Note - Winter Sports Manager
Subjective
Date of Service: January 07, 2025
reports mild headache, otherwise no issues overnight
Objective
Labs:
01/07/25 03:47
01/07/25 03:47
Labs
Hgb 14.7 g/dL (13.0-18.0) 01/07/25 03:47
Hct 44.2 % (39.0-52.0) 01/07/25 03:47
Plt Count 228 10^3/uL (130-400) 01/07/25 03:47
Sodium 139 mmol/L (135-145) 01/07/25 03:47
Potassium 4.4 mmol/L (3.5-5.1) 01/07/25 03:47
BUN 29 mg/dl (9-20) H 01/07/25 03:47
Creatinine 1.8 mg/dL (0.7-1.3) H 01/07/25 03:47
Glucose 116 mg/dl (70-99) H 01/07/25 03:47
Troponins
01/04/25 01/04/25 01/05/25
20:44 23:51 07:17
Troponin I < 0.012 < 0.012 < 0.012
Vital Signs and I&O:
Vital Signs
Temp Pulse Resp BP Pulse Ox
98.1 F 82 12 162/99 97
01/07/25 08:32 01/07/25 08:32 01/07/25 08:32 01/07/25 08:32 01/07/25 03:50
Vital Signs
Temp Pulse Resp BP Pulse Ox
98.1 F 82 12 162/99 97
01/07/25 08:32 01/07/25 08:32 01/07/25 08:32 01/07/25 08:32 01/07/25 03:50
Intake & Output
01/05/25 01/06/25 01/07/25 01/08/25
07:59 07:59 07:59 07:59
Intake Total 960 / 960 960 / 960 1320 / 1320
Output Total 2475 / 2475 825 / 825
Balance 960 / 960 960 / 960 -1155 / -1155 -825 / -825
Physical Exam
Physical Exam
GEN: No distress, awake, alert, oriented x3
HEENT: supple, anicteric, mmm, EOMI
LUNGS: CTA bilaterally, no wheezes/rales
CV: Reg, S1/S2, no murmur
ABD: soft, BS+, NT/ND
EXT: No cyanosis, clubbing, edema
NEURO: Gross non-focal
SKIN: Warm, pink, dry. No rash. Right wrist site soft, clean dry and intact
[2025-01-07] MEDS: LOW STRENGTH ASPIRIN 81 MG PO (08:38)
[2025-01-07] MEDS: NORVASC 10 MG PO (08:39)
[2025-01-07] MEDS: HEPARIN 5000 UNITS SC (08:39)
[2025-01-07] MEDS: COREG PO (08:46)
[2025-01-07] MEDS: COREG 6.25 MG PO (09:28)
[2025-01-07] MEDS: EFFIENT 60 MG PO (09:28)
[2025-01-07 09:40] LABS: Glucose - Point of Care 100 mg/dl (70-99)
--- NOTE | 2025-01-07 10:48 | W.PN.HOSP.TC ---
Today's Communication/Plan
-
DC
Assessment / Plan
Assessment / Plan
64yo M with PMHX of HTN, chest pain, current smoker Hx of cardiac cath 2 mo ago in [facility] and declined stent placement at that time, [place] with substernal chest pain similar to prior radiating to L arm, lasted
for 15min. S/P Cath on 01/06/25 with stent x2. Started on DAPT. discussed importance of non-interrupted DAPT due to recent stenting with patient and daughter over the phone. Recommended Good RX for discounts. Referred to [facility] for
PCP. BMP recommended in 1 week with consideration for MRI/MRCP with and without contrast if creatinine stabilize - family to discuss with PCP upon D/C. Strict smoking cessation. With mid DM - diet control at this time (cannot start metformin due
to renal function). Medcially stable to be d/c home as discussed with card. Cr minimally improved. Losartan stopped
A/P:
#Chest pain, stable angina
HLD
troponin WNL
no signs of ACS on EKG
Telemetry
Echo: EF 57%, no wall motion abnormalities, no significant valvular disease
Cardio consult: for cardiac cath
ASA, statin
#AAA 3.8cm
follow up in 12mo with PCP for US
#FRANCISCO on CKD unspecified stage
Improved on IVF from 2.5 to 1.9
Urine studies not done for some reason
Nephro consult
#Elevated d-dimer
CT chest w/o PE
US LE neg for DVT
#paraseptal emphysema
#nicotine dependency
counselled on smoking cessation
#L subclavian stenosis 50%
#Emphysema
stop smoking
outpatient f/u with PCP
#New diagnosis of DM type 2
HgbA1c 6.6%
Accucheck, Insulin SS, DM diet
#Fatty liver disease
#2cm L renal lesion
#Questionable pancreatic cyst
recommended MRI/MRCP as outpatient, but [place], questionable abilty to follow as outpatient. Contrast administration can be limited by renal function
#Essential HTN
stop losartan with elevated Cr
BB eventually, amlodipine, Imdur
DVT ppx hep
FUll code
I have spent at least 51min reviewing chart, test results, communication with consultants, discussed in details with daughter over the phone and providing direct patient care
Anticipated Discharge: Today
Subjective/Interval History
-
Date of Service: January 07, 2025
Objective Data
-
Labs:
Laboratory Results
01/07/25
03:47
WBC 9.6
Hgb 14.7
Hct 44.2
Plt Count 228
Sodium 139
Potassium 4.4
Chloride 113 H
Carbon Dioxide 19 L
BUN 29 H
Creatinine 1.8 H
Glucose 116 H
Calcium 8.8
Total Bilirubin 0.5
AST 21
ALT 35
Alkaline Phosphatase 65
Vital Signs:
Vital Signs
Temp Pulse Resp BP Pulse Ox
98.1 F 74 12 162/99 97
01/07/25 08:32 01/07/25 09:28 01/07/25 08:32 01/07/25 09:28 01/07/25 03:50
I&O
01/06/25 01/07/25 01/08/25
06:59 06:59 06:59
Intake Total 960 / 960 1320 / 1320
Output Total 2475 / 2475 825 / 825
Balance 960 / 960 -1155 / -1155 -825 / -825
Review of Systems
-
History Source: Patient
All other systems: Reviewed and negative
Physical Exam
-
General: No Apparent Distress
HEENT: Normocephalic
Respiratory: Clear to Auscultation
Cardiac: Regular Rhythm
GI: Soft, Nontender and Nondistended
Neuro: Awake
Psych: Calm
--- NOTE | 2025-01-07 10:50 | W.PN.NEPH.PH ---
Today's Communication / Plan
-
follow labs
check serologies for nephrotic range proteinuria
Assessment/Plan
-
IMP:
Chest pain -home possible ACS s/p cath and 2 stents on 01/06
FRANCISCO with CKD-no baseline cr
Indeterminate 2.0 cm left renal lesion, probably benign. Recommend follow-up renal ultrasound or MRI in 6 months.
AAA - 3.8 cm infrarenal aaa
Questionable pancreatic cystic lesion
New DM 6.6A1c
paraseptal emphysema
Fatty liver disease
50% prox L subclavian stenosis noted by imaging
Active smoker
Plan:
A/w CP concerning of ACS s/p stent x2 on 01/06
FRANCISCO with CKD-no previous labs to compare
cr is improving to 1.8, contrast exposure on 01/04 and 01/06
UA bland, 3+alb, U PCR 3.6gm/gm of cr, no hydro on CT, follow bladder scan
possible benign left renal lesion need f/u imaging in 6m
check serologies with nephrotic range proteinuria
BP high ,increased AMlodipine, coreg added today
once cr stabilizes should resume ARB
needs MRI for pancreatic cyst -would wait cr to stabilize first
reviewed imp of controlling HTN, compliant with medical care and quit smoking
d/w pt in detail through grading machine operator line
-
-
Date of Service: January 07, 2025
CC / HPI / ROS
-
Chief Complaint:
FRANCISCO with CKD
History of Present Illness:
cr slightly down to 1.8
BP high, non oliguric with out iniguez
Review of Systems:
no cp or sob
feels well
no n/v
Labs
-
Labs:
WBC 9.6 10^3/uL (4.8-10.8) 01/07/25 03:47
RBC 5.08 10^6/uL (4.70-6.10) 01/07/25 03:47
Hgb 14.7 g/dL (13.0-18.0) 01/07/25 03:47
Hct 44.2 % (39.0-52.0) 01/07/25 03:47
Plt Count 228 10^3/uL (130-400) 01/07/25 03:47
Sodium 139 mmol/L (135-145) 01/07/25 03:47
Potassium 4.4 mmol/L (3.5-5.1) 01/07/25 03:47
Chloride 113 mmol/L (98-107) H 01/07/25 03:47
Carbon Dioxide 19 mmol/L (22-30) L 01/07/25 03:47
BUN 29 mg/dl (9-20) H 01/07/25 03:47
Creatinine 1.8 mg/dL (0.7-1.3) H 01/07/25 03:47
eGFR 41.51 01/07/25 03:47
Glucose 116 mg/dl (70-99) H 01/07/25 03:47
Calcium 8.8 mg/dl (8.4-10.2) 01/07/25 03:47
Occ-Y-Cuhbrykeeud Pept 116 pg/ml 01/04/25 20:44
Albumin 3.7 g/dl (3.5-5.0) 01/07/25 03:47
Physical Exam
-
Vital Signs:
Vital Signs
Temp Pulse Resp BP Pulse Ox
98.1 F 74 12 162/99 97
01/07/25 08:32 01/07/25 09:28 01/07/25 08:32 01/07/25 09:28 01/07/25 03:50
Cardiovascular:: Regular rate and rhythm
Respiratory:: Bilateral: CTA
Lung Excursion:: Normal
Abdomen:: Nontender and Soft
Extremity Edema:: None: Bilateral:
Iniguez Catheter: No
[2025-01-07 10:54] VITALS: BP 150/83
--- NOTE | 2025-01-07 10:57 | W.DCSUMMARY ---
Discharge Summary
Discharge Data
Date of Admission: 01/07/25
Date of Discharge: 01/07/25
-
Pending Results: No
Hospital Course
64yo M with PMHX of HTN, chest pain, current smoker Hx of cardiac cath 2 mo ago in [facility] and declined stent placement at that time, [place] with substernal chest pain similar to prior radiating to L arm, lasted
for 15min. S/P Cath on 01/06/25 with stent x2. Started on DAPT. discussed importance of non-interrupted DAPT due to recent stenting with patient and daughter over the phone. Recommended [facility] for discounts. Referred to [facility] for
PCP. BMP recommended in 1 week with consideration for MRI/MRCP with and without contrast if creatinine stabilize - family to discuss with PCP upon D/C. Strict smoking cessation. With mid DM - diet control at this time (cannot start metformin due
to renal function). Medcially stable to be d/c home as discussed with card. Cr minimally improved. Losartan stopped
I have spent at least 51min reviewing chart, test results, communication with consultants, discussed in details with daughter over the phone and providing direct patient care
Patient was managed for:
#Chest pain, stable angina
#AAA 3.8cm
#FRANCISCO on CKD unspecified stage
#Elevated d-dimer
#paraseptal emphysema
#nicotine dependency
#L subclavian stenosis 50%
#Emphysema
#New diagnosis of DM type 2
#Fatty liver disease
#2cm L renal lesion
#Questionable pancreatic cyst
#Essential HTN
Discharge Plan
-
Patient Disposition: Home (Routine Discharge)
Discharge Diagnosis/Procedures: Acute coronary syndrome, Angioplasty with stent to RCA and LAD
Diet: Low Cholesterol and Diabetic, Carb Controlled
Driving Restrictions: No driving for 24 hours
Blood Work: BMP in 1 week
Other Services: Cardiac Rehab
Activity Restrictions/Additional Instructions:
Obtain all mediations from pharmacy
Please establish with primary care physician (family doctor) of your choice (Consider [facility] in [facility] that can help with underinsured patient) Call for appointment
[phone]
Blood test for kidney function in 1 week, if stable -discuss with doctor referral to MRI abdomen /MRCP with and without contrast with contrast for for pancreatic lesion and renal lesion
Stand Alone Forms: DC Instructions- Cath/EP Lab
Referrals:
Myrtle Rivero PA-C [Specified Professional Personl, Cardiology] - 01/29/25 4:00 pm
Misael Geronimo MD [Family Provider, Internal Medicine]
Additional Discharge Medication Instructions: STOP losartan (cozaar)!
Prescriptions:
New
carvedilol 6.25 mg Tablet
6.25 mg PO BID Qty: 60 0RF
atorvastatin 20 mg Tablet
40 mg PO QPM Qty: 30 0RF
amlodipine 5 mg Tablet
10 mg PO DAILY Qty: 30 0RF
aspirin 81 mg Tablet,Chewable
81 mg PO DAILY Qty: 30 0RF
prasugrel HCl 10 mg Tablet
10 mg PO DAILY Qty: 30 0RF
nitroglycerin 0.4 mg Tablet, Sublingual
0.4 mg sublingual [id number] PRN (Reason: chest pain) Qty: 15 0RF
Discontinued
losartan
PO DAILY
Discharge Orders:
Discharge Patient (As Directed); Ordered 01/07/25
Ordered By: Hudson Brown
Care Plan Goals
Care Plan Goals:
Problem: Readiness for enhanced knowledge related to diagnosis and treatment plan
Goal: Understand your diagnosis and treatment plan needs, including medications if applicable.
Instructions: Know your diagnosis, underlying causes and treatment plan options, including medications if applicable. Consult with your health care team to learn about your diagnosis and treatment plan, including medications if applicable.
Discharge Date and Time
Print Language: TAMAZIGHT
--- NOTE | 2025-01-07 12:45 | PTCARENOTE ---
~8877-2161: Handoff report received from nightshift RN. Malawian community artist utilized for communication. Pt Aox4, NSr 80s-90s on tele, SBP 160s, RA satting 97%. Pt denies pain at this time. R radial site CDI. NSS infusing at 75ml/hr per order.
Cardiology at [facility] to see patient this AM, meds adjusted. All needs met at this time, call norwood within reach.
~0950-8990: Urine sample and blood work drawn and sent to lab for processing. DC orders in. IV and Tele removed from patient. Patient dressed independently. DC paperwork reviewed with daughter and patient, all questions answered. Patient d/c'd in
stable condition to home.
[2025-01-09 01:48] LABS: ANA, IgG Reflex to HEp-2 None Detected (None Detected)
== END 2025-01-07 12:45 | disposition home or self-care (01) | DRG 322 ==
LOC: IVU 08:13
PROVIDERS: Emergency Medicine; Physician Assistant; ADMITTING PHYSICIAN Internal Medicine; ATTENDING PHYSICIAN Internal Medicine; CONSULT PHYSICIAN Internal Medicine; EMERGENCY PHYSICIAN Emergency Medicine; FAMILY PHYSICIAN Internal Medicine; OTHER PHYSICIAN Internal Medicine Interventional Cardiology
PROC: 027135Z Dilation of Coronary Artery, Two Arteries with Two Drug-eluting Intraluminal Devices, Percutaneous Approach (ICD-10-PCS; 2025-01-06)
PROC: B241ZZ3 Ultrasonography of Multiple Coronary Arteries, Intravascular (ICD-10-PCS; 2025-01-06)
PROC: B2111ZZ Fluoroscopy of Multiple Coronary Arteries using Low Osmolar Contrast (ICD-10-PCS; 2025-01-06)
PROC: 4A023N7 Measurement of Cardiac Sampling and Pressure, Left Heart, Percutaneous Approach (ICD-10-PCS; 2025-01-06)
DX: I25.118 Atherosclerotic heart disease of native coronary artery with other forms of angina pectoris (principal); I24.9 Acute ischemic heart disease, unspecified; N17.9 Acute kidney failure, unspecified; I12.9 Hypertensive chronic kidney disease with stage 1 through stage 4 chronic kidney disease, or unspecified chronic kidney disease; N18.9 Chronic kidney disease, unspecified; E78.5 Hyperlipidemia, unspecified; E66.01 Morbid (severe) obesity due to excess calories; I71.43 Infrarenal abdominal aortic aneurysm, without rupture; E11.22 Type 2 diabetes mellitus with diabetic chronic kidney disease; J43.8 Other emphysema; K76.0 Fatty (change of) liver, not elsewhere classified; I70.8 Atherosclerosis of other arteries; R35.0 Frequency of micturition; F17.210 Nicotine dependence, cigarettes, uncomplicated; Z60.2 Problems related to living alone; Z60.3 Acculturation difficulty; Z91.148 Patient's other noncompliance with medication regimen for other reason; Z11.52 Encounter for screening for COVID-19; Z68.35 Body mass index [BMI] 35.0-35.9, adult; Z87.442 Personal history of urinary calculi; I25.2 Old myocardial infarction
CPT/HCPCS: 71046; 71275; 74176; 80048; 80053; 80061; 81003; 81015; 81099; 82570; 82962; 83036; 83520; 83690; 83880; 83935; 84155; 84156; 84165; 84300; 84484; 85025; 85347; 85379; 86038; 86160; 86335; 87502; 87811; 92978; 92979; 93005; 93306; 93458; 93970; 99152; 99153; 99285; 99406; C1725; C1753; C1769; C1874; C1894; C9600; Q9967